=== PATIENT | male | born 1990 | race Caucasian/White ===

== ENCOUNTER 2016-10-06 19:00 | Emergency (ER) | payer BC ==
--- NOTE | 2016-10-06 23:42 | DIAGNOSTIC IMAGING REPORT ---
PROCEDURE: US ABDOMEN ULTRASOUND-LIMITED INDICATION: EPIGASTRIC ABDOMINAL PAIN TECHNIQUE: Dias scale and color Doppler sonographic images were obtained of the right upper quadrant. COMPARISON: None. FINDINGS: The liver is moderately diffusely hyperechoic. No mass or biliary dilatation. The gallbladder nearly completely decompressed and there is a question of 4 mm stone at the fundus. Normal wall thickness at 3 mm. No pericholecystic fluid or Patiño's sign. The visible portion of the inferior vena cava, abdominal aorta, and portal vein appear normal with appropriate direction of flow in the portal vein. The right kidney is normal measuring 10.7 cm No free fluid in the right upper quadrant. IMPRESSION: 1. Questionable nonobstructing cholelithiasis without sonographic evidence of cholecystitis. 2. Moderate hepatic steatosis.
--- NOTE | 2016-10-06 23:56 | ED CLINICAL REPORT ---
Clinical Report - Physicians/Mid Levels [facility] [address] [place] [place] [address] 10/06/2016 19:02 Patient: JERALD SANTANA Time Seen: 1999. Arrived- By private vehicle. Historian- patient. HISTORY OF PRESENT ILLNESS Chief Complaint: ABDOMINAL PAIN. At its maximum, severity described as severe. When seen in the E.D., severity described as moderate. Modifying factors- worsened by food. Not relieved by anything. It is described as pressure. No radiation. It is described as located in the left abdomen. This started today and is still present but is improving. It was abrupt in onset and has been constant but is not gone now. The patient has had nausea. No loss of appetite, vomiting or diarrhea. No additional abdominal pain. (states he just got done eating fast food when the pain started. has reported history of "gallstones"). No recent travel. Similar symptoms previously: None. Recent medical care: Not recently seen/assessed. REVIEW OF SYSTEMS All systems otherwise negative, except as recorded above. PAST HISTORY See nurses notes. SOCIAL HISTORY Never smoker. No alcohol use or drug use. No recent travel. Is a local resident. FAMILY HISTORY (grandmother "had to get her gallbladder out."). ADDITIONAL NOTES The nursing notes have been reviewed. PHYSICAL EXAM Vital Signs: 10/06/2016 19:38 BP: 124/61. HR: 83. RR: 18. O2 saturation: 100%. Temp: 98.3 F. Pain level now: 5/10. Blood pressure normal. Oxygen saturation normal. Appearance: Alert. Oriented X3. No acute distress. Eyes: Pupils equal, round and reactive to light. Eyes normal inspection. ENT: Ears normal. Nose normal. Pharynx normal. Neck: Normal inspection. Neck supple. CVS: Normal heart rate and rhythm. Heart sounds normal. Pulses normal. Respiratory: No respiratory distress. Breath sounds normal. Chest nontender. Abdomen: Soft and nontender. Mild tenderness in the epigastric area. No guarding, rebound tenderness or Patiño's, obturator or psoas sign present. Bowel sounds normal. No mass. Skin: Skin warm and dry. Normal skin color. No rash. Normal skin turgor. Extremities: Extremities exhibit normal ROM. No lower extremity edema. Neuro: Oriented X 3. No motor deficit. No sensory deficit. LABS, X-RAYS, AND EKG Abdominal Sonogram: (PROCEDURE: US ABDOMEN ULTRASOUND-LIMITED INDICATION: EPIGASTRIC ABDOMINAL PAIN TECHNIQUE: Dias scale and color Doppler sonographic images were obtained of the right upper quadrant. COMPARISON: None. FINDINGS: The liver is moderately diffusely hyperechoic. No mass or biliary dilatation. The gallbladder nearly completely decompressed and there is a question of 4 mm stone at the fundus. Normal wall thickness at 3 mm. No pericholecystic fluid or Patiño's sign. The visible portion of the inferior vena cava, abdominal aorta, and portal vein appear normal with appropriate direction of flow in the portal vein. The right kidney is normal measuring 10.7 cm No free fluid in the right upper quadrant. IMPRESSION: 1. Questionable nonobstructing cholelithiasis without sonographic evidence of cholecystitis. 2. Moderate hepatic steatosis.). The study was independently viewed by me and interpreted by the radiologist. The study was discussed with the radiologist (via pacs). Laboratory Tests: CBC w Diff: (RHONA: 10/06/2016 20:38) ( MsgRcvd 10/06/2016 20:55) Final results Test Result Flag Units (Reference) WHITE BLOOD COUNT 7.8 K/uL (4.5-11.5) RED BLOOD COUNT 5.24 M/uL (4.50-5.90) HEMOGLOBIN 15.9 gm/dL (13.5-17.5) HEMATOCRIT 46.9 % (41.0-53.0) MEAN CELL VOLUME 89 fL (80-100) MEAN CORPUSCULAR HGB 30 pg (26-34) MEAN CORPUSCULAR HGB CONC 34 g/dL (31-37) RED CELL DISTRIBUTION WIDTH 12.7 % (11.6-14.8) PLATELET COUNT 220 K/uL (150-400) NEUTROPHIL % 59.1 % (50-75) LYMPH % 31.4 % (25-40) MONO % 7.6 % (3-14) EOSINOPHIL % 1.5 % (0-4) BASOPHIL % 0.4 % (0-2) CMP: (RHONA: 10/06/2016 20:38) ( MsgRcvd 10/06/2016 21:13) Final results Test Result Flag Units (Reference) GLUCOSE 103 mg/dL (70-110) BUN 8 mg/dL (7-18) CREATININE 1.0 mg/dL (0.6-1.3) Estimated GFR >60 mL/min Estimated GFR- >60 mL/min Note: Persistent reduction over 3 months in eGFR<60 mL/min/1.73 m2 defines CKD. Patients with eGFR values>=60 mL/min/1.73 m2 may also have CKD if evidence ofpersistent proteinuria. Additional information may be foundat www.kidney.org. SODIUM 142 mmol/L (136-145) POTASSIUM 3.8 mmol/L (3.5-5.1) CHLORIDE 104 mmol/L (98-107) CARBON DIOXIDE 28 mmol/L (21-32) CALCIUM 9.1 mg/dL (8.5-10.1) TOTAL PROTEIN 7.9 g/dL (6.4-8.2) ALBUMIN 4.0 g/dL (3.3-5.0) BILIRUBIN, TOTAL 0.5 mg/dL (0.0-1.0) ALKALINE PHOSPHATASE 66 U/L (46-116) AST (SGOT) 39 H U/L (15-37) ALT (SGPT) 80 H U/L (12-78) LIPASE 105 U/L (73-393) . PROGRESS AND PROCEDURES Course of Care: he patient is a pleasant 26-year-old male presenting for evaluation of epigastric/left upper quadrant abdominal pain. Differential diagnosis at this time includes gastritis versus hepatitis versus biliary colic. Patient will be evaluated with laboratory studies including ultrasound of the abdomen. Patient is agreeable to the treatment plan. Patient currently declining offers of pain medication. Work up was remarkable for mild elevation in LFTs. Patient does have signs ofcholelithiasis without cholecystitis. Pain has been significantly improved here in the emergency department spontaneously. Because the patient's improve pain symptoms and lack ofultrasound evidence of acute cholecystitis, patient will be encouraged to follow up as an outpatient with general surgery. He states that he does have a general surgeon in which she has been seen for. Patient states that he not or murmurs that he has had a diagnosis of gallstones. Head discussion with patient in regards toother topics including currently being enrolled in a nursing program locally. 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 Patient continues to be nontoxic. Abdominal exam is benign. Patient is a good outpatient candidate. Do not feel patient is admitted to the hospital requires admission to the hospital. discussed with patient workup, diagnosis, home care, follow-up, and return precautions. All questions have been answered. The patient expressed understanding of these instructions and was agreeable to them. Disposition: Discharged. Condition: good. CLINICAL IMPRESSION Acute epigastric and left upper quadrant abdominal pain of unknown cause. Moderate nausea (acute). No vomiting. INSTRUCTIONS Warnings: GENERAL WARNINGS: Return or contact your physician immediately if your condition worsens or changes unexpectedly, if not improving as expected, or if other problems arise. SPECIFICALLY, return if you develop pain in the abdomen, fever, vomiting, the inability to keep fluids down, blood in vomitus, blood in diarrhea, fainting or lightheadedness. Your Current Medications: CONTINUE TAKING THE FOLLOWING MEDICATIONS: None*. Follow-up: Return to the emergency department as needed. Follow up with your doctor in three days. Reason for referral: recheck today's concerns. Summary of care provided to patient via paper. Screening today revealed the patient's blood pressure to be in the normal range. The patient should follow up with a primary care provider for blood pressure management. Understanding of the discharge instructions verbalized by patient. (Electronically signed by Bharat Daniels Dr. 10/13/2016 0:39)
--- NOTE | 2016-10-06 23:56 | ED ORDER SUMMARY ---
..... Patient: JERALD SANTANA OrderSheet [facility] VisitID: [id number] [place] [address] 26y, M Registration Date/Time: 10/06/2016 ORDER SHEET Weight: 24.9 kg (estimated) Allergies: No Known Drug Allergy GENERAL ORDERS: US Abdomen Limited (No) Urgent (20:10/06/2016 Jules Tamez) (Ack 20:26 ALawrence ER Tech1) (22:36 ALawrence ER Tech1) CBC w Diff Urgent (20:10/06/2016 Jules Tamez) (Ack 20:26 ALawrence ER Tech1) (22:30 DDavis R.N.) CMP Urgent (20:10/06/2016 Jules Tamez) (Ack 20:26 ALawrence ER Tech1) (22:30 DDavis R.N.) UA-Culture if indicated Urgent (20:10/06/2016 Jules Tamez) (Ack 20:26 ALawrence ER Tech1) (22:30 DDavis R.N.) Lipase Urgent (20:10/06/2016 Jules Tamez) (Ack 20:26 ALawrence ER Tech1) (22:30 DDavis R.N.) Pulse oximeter (20:10/06/2016 Jules Tamez) (Ack 20:26 ALawrence ER Tech1) (22:30 DDavis R.N.) MEDICATION ORDERS: IV FLUIDS: Zofran IV 4 mg (NOW) (20:10/06/2016 Jules Tamez) (20:46 SSambou R.N.) IV Saline Lock (20:10/06/2016 Jules Tamez) (20:46 SSambou R.N.) ORDER SHEET NOTES: [Electronically signed by Raheem Fuentes R.N. (00:24 10/07/2016)] [Electronically signed by Bharat Daniels Dr. (00:39 10/13/2016)] [Electronically locked/signed by Raheem Fuentes R.N. (00:24 10/07/2016)]
--- NOTE | 2016-10-06 23:56 | ED NURSING NOTES ---
Clinical Report - Nurses [facility] [address] [place] [address] 10/06/2016 19:02 Patient: JERALD SANTANA TRIAGE Triage time 19:38. Acuity: LEVEL 3. Chief Complaint: JAW PAIN. --19:42 Sheriff Gr R.N. 19:38 10/06/16. BP: 124/61. HR: 83. RR: 18. O2 saturation: 100%. Temp: 98.3 F. Pain level now: 11/26. --19:42 Sheriff Gr R.N. Weight: 24.9 kg estimated. Height/Length: 65 inches Estimated. BMI: 9.1. --00:18 Raheem Fuentes R.N. Medications None. --19:40 Sheriff Gr R.N. Allergies No Known Drug Allergy. --19:40 Sheriff Gr R.N. History Arrived by private vehicle. Historian: patient. Unaccompanied. Onset. (45 minutes ago). SURGERY HX: No history of previous surgery. SOCIAL HX: Smoker- current status unknown (Vape). Occasional alcohol use. No drug use. FALL RISK ASSESSMENT: Fall risk assessment completed. No fall risk identified. NUTRITIONAL RISK ASSESSMENT: The nutritional risk assessment revealed no deficiencies. FUNCTIONAL ASSESSMENT: Functional assessment: no impairments noted. LEARNING NEEDS ASSESSMENT: The learning needs assessment revealed no barriers. SKIN INTEGRITY ASSESSMENT: Skin integrity risk assessment completed. No skin integrity risk identified. --19:42 Sheriff Gr R.N. PROBLEMS: Anxiety Reaction. --19:40 Sheriff Gr R.N. Interventions ID band on patient. To room. --19:42 Sheriff Gr R.N. PHYSICAL ASSESSMENT Ambulatory to room. GENERAL / NEURO / PSYCH: Alert. Oriented X 4. HEENT: Mouth within normal limits upon inspection. Mucous membranes are pink. RESPIRATORY: Respirations not labored. CVS: Capillary refill less than 2 seconds. SKIN: Skin is warm and dry. --19:42 Sheriff Gr R.N. ( patient sitting upright in bed, calm and in no apparent distress. Patient conversant and pleasant.). GENERAL / NEURO / PSYCH: Alert. Oriented X 4. Appears in no acute distress. HEENT: Voice within normal limits. Mucous membranes are pink. RESPIRATORY: Respirations not labored. CVS: Capillary refill less than 2 seconds. SKIN: Skin is warm and dry. --22:41 Raheem Fuentes R.N. NURSING PROGRESS NOTES Head of bed elevated. Two patient identifiers checked. Call light placed in reach. Side rails up x 2. Bed placed in lowest position. Brakes of bed on. Patient ready for evaluation- chart flagged. --19:43 Sheriff Gr R.N. 20:46 10/06/2016 Site #1 started via IV in the left antecubital space with an 20g angiocath, with aseptic technique and good blood return; one attempt. Blood drawn: rainbow set. Labeled in the presence of the patient and sent to the lab. Saline lock flushed with 10 mL saline. --20:46 Sheriff Gr R.N. 20:46 10/06/2016 Zofran (Ondansetron HCl) IVP 4 mg given over 1 minute(s) via site #1. Allergies verified and confirmed 5 rights. IV patency established site checked: no pain, redness, or swelling flushed thoroughly pre- and post-medication administration. IVP given by RN. --20:46 Sheriff Gr R.N. 21:30 10/06/16. BP: 111/51. HR: 65. RR: 16. O2 saturation: 97%. Temp: 98.3 F. Pain level now: 08/29. --21:31 Sheriff Gr R.N. 22:40 10/06/16. BP: 113/81. HR: 81. RR: 16. O2 saturation: 99% on room air. Pain level now: 09/26. --22:40 Raheem Fuentes R.N. DISPOSITION / DISCHARGE Condition at departure: stable. The goals identified in the patient's plan of care were met. No learning barriers present. Discharge instructions provided and reviewed with the patient. Treatments reviewed. Reviewed referrals for followup. Patient verbalized understanding. Written instructions provided in Slovak. The patient was discharged home and unaccompanied at time of discharge. He left the Emergency Department ambulatory and via private vehicle. Patient driving. FALL RISK ASSESSMENT: Fall risk assessment completed. No fall risk identified. --00:23 Raheem Fuentes R.N. 00:10/07/16. BP: 128/79. HR: 70. RR: 17 (unlabored). O2 saturation: 100% on room air. --00:23 Raheem Fuentes R.N. 00:10/07/2016 Site #1 removed upon discharge. Manual pressure and bandaid applied. --00:23 Raheem Fuentes R.N. Locked/Released at 10/07/2016 0:24 by Raheem Fuentes R.N.
--- NOTE | 2016-10-06 23:56 | ED ORDER SUMMARY ---
..... Patient: JERALD SANTANA OrderSheet [facility] VisitID: [id number] [place] [address] 26y, M Registration Date/Time: 10/06/2016 ORDER SHEET Weight: 24.9 kg (estimated) Allergies: No Known Drug Allergy GENERAL ORDERS: US Abdomen Limited (No) Urgent (20:10/06/2016 Jules Tamez) (Ack 20:26 ALawrence ER Tech1) (22:36 ALawrence ER Tech1) CBC w Diff Urgent (20:10/06/2016 Jules Tamez) (Ack 20:26 ALawrence ER Tech1) (22:30 DDavis R.N.) CMP Urgent (20:10/06/2016 Jules Tamez) (Ack 20:26 ALawrence ER Tech1) (22:30 DDavis R.N.) UA-Culture if indicated Urgent (20:10/06/2016 Jules Tamez) (Ack 20:26 ALawrence ER Tech1) (22:30 DDavis R.N.) Lipase Urgent (20:10/06/2016 Jules Tamez) (Ack 20:26 ALawrence ER Tech1) (22:30 DDavis R.N.) Pulse oximeter (20:10/06/2016 Jules Tamez) (Ack 20:26 ALawrence ER Tech1) (22:30 DDavis R.N.) MEDICATION ORDERS: IV FLUIDS: Zofran IV 4 mg (NOW) (20:10/06/2016 Jules Tamez) (20:46 SSambou R.N.) IV Saline Lock (20:10/06/2016 Jules Tamez) (20:46 SSambou R.N.) ORDER SHEET NOTES: [Electronically signed by Raheem Fuentes R.N. (00:24 10/07/2016)] [Electronically signed by Bharat Daniels Dr. (00:39 10/13/2016)] [Electronically locked/signed by Raheem Fuentes R.N. (00:24 10/07/2016)]
--- NOTE | 2016-10-13 00:39 | ED MAR SUMMARY ---
..... Medication Administration Record [facility] [address] [place] [address] Patient: JERALD SANTANA Visit ID: [id number] 26y, M Weight: 24.9 kg Height/Length: 65 in BMI: 9.1 ALLERGIES: No Known Drug Allergy Given 20:46 10/06/2016 Sheriff Gr R.N. Medication Administered: ZOFRAN [IVP] (ONDANSETRON HCL), Dose: 4 mg IVP over 1 minute(s), Site: #1 left AC. Medication Ordered: Zofran IV 4 mg (NOW).
--- NOTE | 2016-10-13 00:39 | ED DISCHARGE INSTRUCTIONS ---
Patient: JERALD SANTANA General Instructions [facility] VisitID: [id number] [place] [address] 26y, M Registration Date/Time: 10/06/2016 Acute epigastric and left upper quadrant abdominal pain of unknown cause. Moderate nausea (acute). No vomiting. INSTRUCTIONS Warnings: GENERAL WARNINGS: Return or contact your physician immediately if your condition worsens or changes unexpectedly, if not improving as expected, or if other problems arise. SPECIFICALLY, return if you develop pain in the abdomen, fever, vomiting, the inability to keep fluids down, blood in vomitus, blood in diarrhea, fainting or lightheadedness. Your Current Medications: CONTINUE TAKING THE FOLLOWING MEDICATIONS: None*. Follow-up: Return to the emergency department as needed. Follow up with your doctor in three days. Reason for referral: recheck today's concerns. Summary of care provided to patient via paper. Screening today revealed the patient's blood pressure to be in the normal range. The patient should follow up with a primary care provider for blood pressure management. Understanding of the discharge instructions verbalized by patient. ADDITIONAL INFORMATION Abdominal Pain,Uncertain Cause [Male] Based on your visit today, the exact cause of your abdominalpain is not clear. Your exam and tests do not indicate a dangerous cause at this time. However, the signs of a serious problem may take more time to appear. Although your evaluation was reassuring today, sometimes early in the course of many conditions, exam and lab tests can appear normal. Therefore, it is important for you to watch for any new symptoms or worsening of your condition. Causes It may not be obvious what caused your symptoms. Pay attention to things that do seem to make your symptoms worse or better and discuss this with your doctor when you follow up. Diagnosis The evaluation of abdominal pain in the emergency department may onlyrequire an exam by the doctor or it may include blood, urine or imaging studies, depending on many factors. Sometimes exams and tests can identify a cause but in many cases, a clear cause is not found. Further testing at follow up visits may help to suggest a clear diagnosis. Home Care Rest as much as possible until your next exam. Try to avoid any medications (unless otherwise directed by your doctor), foods, activities, or other factors that you may have contributed to your symptoms. Try to eat foods that you know that you have tolerated well in the past. Certain diets may be recommended for some conditions that cause abdominal pain. However, since the cause of your symptoms may not be clear, discuss your diet more with your primary care provider or specialist for further recommendations. Eating several small meals per day as opposed to 2 or 3 larger meals may help. Monitor closely for anything that may make your symptoms worse or better. Pay close attention to symptoms below that may indicate worsening of your condition. Follow Up and Precautions See your doctoras instructed or sooneror if your symptoms are not improving.In some cases, you may need more testing. When to Seek Medical Attention Contact your doctor or see medical attention ifany of the following occur: Pain is becoming worse You are unable to take your medications due to excessive vomiting Swelling of the abdomen Fever of 100.4F (38C) or higher, or as directed by your health care provider Blood in vomit or bowel movements (dark red or black color) Jaundice (yellow color of eyes and skin) New onset of weakness, dizziness or fainting New onset of chest, arm, back, neck or jaw pain You have been given the following additional information: Abdominal Pain, Unknown Cause, (Male) (Electronically signed by Bharat Daniels Dr. 10/13/2016 0:39)
--- NOTE | 2016-10-13 00:39 | ED MAR SUMMARY ---
..... Medication Administration Record [facility] [address] [place] [address] Patient: JERALD SANTANA Visit ID: [id number] 26y, M Weight: 24.9 kg Height/Length: 65 in BMI: 9.1 ALLERGIES: No Known Drug Allergy Given 20:46 10/06/2016 Sheriff Gr R.N. Medication Administered: ZOFRAN [IVP] (ONDANSETRON HCL), Dose: 4 mg IVP over 1 minute(s), Site: #1 left AC. Medication Ordered: Zofran IV 4 mg (NOW).
--- NOTE | 2016-10-13 00:39 | ED MED RECONCILIATION SUMMARY ---
Patient: JERALD SANTANA Medication Reconciliation Report [facility] VisitID: [id number] [address] [place] [address] 26y, M Registration Date/Time: 10/06/2016 Weight: 24.9 kg Height/Length: 65 in. BMI: 9.1 ALLERGIES: No Known Drug Allergy The patient's Home Medications are listed below: NONE. The source(s) of the original Home Medication information: Not obtained. The following Medications were given to the patient in the Emergency Department: Zofran [IVP] IVP 4 mg, administered: 10/06/2016 8:46:00 PM The following Medications were prescribed to the patient: None.
--- NOTE | 2016-10-13 00:39 | ED MED RECONCILIATION SUMMARY ---
Patient: JERALD SANTANA Medication Reconciliation Report [facility] VisitID: [id number] [address] [place] [address] 26y, M Registration Date/Time: 10/06/2016 Weight: 24.9 kg Height/Length: 65 in. BMI: 9.1 ALLERGIES: No Known Drug Allergy The patient's Home Medications are listed below: NONE. The source(s) of the original Home Medication information: Not obtained. The following Medications were given to the patient in the Emergency Department: Zofran [IVP] IVP 4 mg, administered: 10/06/2016 8:46:00 PM The following Medications were prescribed to the patient: None.
== END 2016-10-07 00:20 | disposition home or self-care (01) ==
LOC: ED SRH 19:00
DX: R10.13 Epigastric pain (principal); R10.12 Left upper quadrant pain; R11.0 Nausea
CPT/HCPCS: 90100; 92235; 95059

== ENCOUNTER 2016-12-04 20:07 | Emergency (ER) | payer BC ==
--- NOTE | 2016-12-04 21:59 | DIAGNOSTIC IMAGING REPORT ---
PROCEDURE: XR CHEST 2 VIEW INDICATION: CHEST PAIN TECHNIQUE: PA and lateral view. COMPARISON: None. FINDINGS: Lungs are clear. Cardiovascular structures are normal. Bony thorax is unremarkable. IMPRESSION: 1. Negative chest.
--- NOTE | 2016-12-04 22:19 | ED CLINICAL REPORT ---
Clinical Report - Physicians/Mid Levels [facility] [address] [place] [address] 12/04/2016 20:08 Patient: JERALD SANTANA Time Seen: 2031; initial patient contact, initial documentation, patient care assumed. Arrived- By private vehicle. Historian- patient. HISTORY OF PRESENT ILLNESS Chief Complaint: ABDOMINAL PAIN. At its maximum, severity described as severe. When seen in the E.D., severity described as mild. Modifying factors- (felt better and bowel movement). Not worsened by anything. It is described as "pain" and cramping. No radiation. It is described as located in the right lower quadrant and left lower quadrant and in the lower abdomen. This started just prior to arrival and is still present. It was abrupt in onset and has been constant. No nausea, loss of appetite or vomiting. He has had diarrhea (few times today). No additional abdominal pain. No recent travel. Similar symptoms previously: Chronically. ( with skin sensations, according to avinash). Recent medical care: The patient was seen recently at another facility in the emergency department. ( according to avinash pt was seen at [facility] on 12/01 for tingling and skin sensations, 11/28 for generalized muscle pain, 11/18 for muscle pain and tingling skin). REVIEW OF SYSTEMS No constipation, black stools, hematemesis, difficulty with urination or pain with urination. No urinary frequency, bloody stools, fever or difficulty breathing. He has had chest pain. says he was at gym on treadmill doing his walk, got sob and felt pop in center of his chest and then weird skin sensations with coldness going up his neck and into his jaw, suffers from anxiety so thought it was that and kept walking, only lasted a few seconds, then about 20-25 min into walk started having severe lower abd cramps like he had to poop, pain still there but not as bad now after bowel movement. All systems otherwise negative, except as recorded above. PAST HISTORY See nurses notes. PROBLEMS: Nausea. Abdominal Pain. Anxiety Reaction. --20:16 Tyler Terry R.N. ADDITIONAL SURGERIES: no known surgeries. SOCIAL HISTORY Never smoker. Occasional alcohol use. No drug use. No recent travel. Is a local resident. FAMILY HISTORY Negative. ADDITIONAL NOTES The nursing notes have been reviewed with agreement regarding the chief complaint, HPI, ROS, PMH and patient medications and allergies. PHYSICAL EXAM Vital Signs: 12/04/2016 20:13 BP: 135/75. HR: 83. RR: 16. O2 saturation: 97%. Temp: 98.5 F. Have been reviewed as normal and appear to be correct. Appearance: Alert. Oriented X3. No acute distress. Eyes: Pupils equal, round and reactive to light. Eyes normal inspection. Neck: Normal inspection. Neck supple. CVS: Normal heart rate and rhythm. Heart sounds normal. Pulses normal. Respiratory: No respiratory distress. Breath sounds normal. Chest nontender. Abdomen: Soft and nontender. Bowel sounds normal. No organomegaly. No mass. Mildly obese. Back: Normal inspection. Skin: Skin warm and dry. Normal skin color. No rash. Normal skin turgor. Extremities: Extremities exhibit normal ROM. No lower extremity edema. Neuro: Oriented X 3. No motor deficit. No sensory deficit. LABS, X-RAYS, AND EKG EKG: EKG time: (2104). No acute process. No acute ischemia. Normal EKG. Rate: 71. Normal EKG. The study has been interpreted contemporaneously by me (and dr rangel). The EKG appears to be a good tracing. Interpretation time: 2104. Chest X-ray: Normal Chest X-Ray. (IMPRESSION: 1. Negative chest. Electronically Final signed by:Rajendra Yu MD 12/04/2016 9:58:51 PM). The X-rays were independently viewed by me. Interpretation time: 21:58. Laboratory Tests: UA-Culture if indicated: (RHONA: 12/04/2016 20:13) ( MsgRcvd 12/04/2016 21:26) Final results Test Result Flag Units (Reference) URINE COLOR YELLOW URINE APPEARANCE CLEAR URINE GLUCOSE NEGATIVE (NEGATIVE) URINE BILIRUBIN NEGATIVE (NEGATIVE) URINE KETONE NEGATIVE (NEGATIVE) URINE SPECIFIC GRAVITY 1.020 (1.010-1.030) URINE PH 6.0 (5.0-8.0) URINE PROTEIN NEGATIVE (NEGATIVE) URINE UROBILINOGEN 0.2 EU/dL (0.2-1.0) URINE NITRITE NEGATIVE (NEGATIVE) URINE BLOOD NEGATIVE (NEGATIVE) URINE LEUK ESTERASE NEGATIVE (NEGATIVE) URINE RBC NONE SEEN rbc/hpf (0-1) URINE WBC NONE SEEN wbc/hpf (0-1) URINE EPITHELIAL CELLS 0-1 EPI/hpf (0-5) URINE BACTERIA NONE SEEN (NONE SEEN) URINE COMMENT CULT NOT INDICATED URINE CULTURES ARE SET-UP BASED ON THE FOLLOWING CRITERIA:POSITIVE NITRITEPOSITIVE LEUKOCYTE ESTERASEGREATER THAN 10 WHITE BLOOD CELLSMODERATE (2+) OR GREATER BACTERIA CBC w Diff: (RHONA: 12/04/2016 20:55) ( [facility]) Final results Test Result Flag Units (Reference) WHITE BLOOD COUNT 7.0 K/uL (4.5-11.5) RED BLOOD COUNT 5.21 M/uL (4.50-5.90) HEMOGLOBIN 15.8 gm/dL (13.5-17.5) HEMATOCRIT 46.5 % (41.0-53.0) MEAN CELL VOLUME 89 fL (80-100) MEAN CORPUSCULAR HGB 30 pg (26-34) MEAN CORPUSCULAR HGB CONC 34 g/dL (31-37) RED CELL DISTRIBUTION WIDTH 12.6 % (11.6-14.8) PLATELET COUNT 212 K/uL (150-400) NEUTROPHIL % 51.8 % (50-75) LYMPH % 38.5 % (25-40) MONO % 6.9 % (3-14) EOSINOPHIL % 2.1 % (0-4) BASOPHIL % 0.7 % (0-2) Urine Drug Screen: (RHONA: 12/04/2016 20:13) ( VagRcvd 12/04/2016 21:29) Final results Test Result Flag Units (Reference) AMPHETAMINE/METHAMPHETAMINE NEGATIVE (NEGATIVE) BARBITURATE NEGATIVE (NEGATIVE) BENZODIAZEPINE NEGATIVE (NEGATIVE) CANNABINOID NEGATIVE (NEGATIVE) COCAINE NEGATIVE (NEGATIVE) ECSTASY NEGATIVE (NEGATIVE) METHADONE NEGATIVE (NEGATIVE) OPIATE NEGATIVE (NEGATIVE) The urine drug screen is a qualitative screening test fordrug overdose and abuse. All screen results should beconsidered as presumptive.Drugs screened for are as follows:BenzodiazepinesCocaineAmphetamines/MetamphetaminesTHC (Tetrahydrocannabinol)OpiatesBarbituratesEcstasyMethadonePositive results are unconfirmed. For confirmation, notifythe lab for the specimen to be sent to the reference lab.All confirmations must be performed by a differentmethodology.The ingestion of natural herbal and plant productscontaining Ephedra/Ephedra metabolites can produce in urineone or more substances capable of cross reacting withamphetamine/methamphetamine immunoassays. These testsprovide a preliminary result only. A more specificalternative chemical method must be used to obtain aconfirmed analytical result. CMP: (RHONA: 12/04/2016 20:55) ( MsgRcvd 12/04/2016 21:31) Final results Test Result Flag Units (Reference) GLUCOSE 123 H mg/dL (70-110) BUN 11 mg/dL (7-18) CREATININE 1.0 mg/dL (0.6-1.3) Estimated GFR >60 mL/min Estimated GFR- >60 mL/min Note: Persistent reduction over 3 months in eGFR<60 mL/min/1.73 m2 defines CKD. Patients with eGFR values>=60 mL/min/1.73 m2 may also have CKD if evidence ofpersistent proteinuria. Additional information may be foundat www.kidney.org. SODIUM 144 mmol/L (136-145) POTASSIUM 3.7 mmol/L (3.5-5.1) CHLORIDE 107 mmol/L (98-107) CARBON DIOXIDE 28 mmol/L (21-32) CALCIUM 9.1 mg/dL (8.5-10.1) TOTAL PROTEIN 7.9 g/dL (6.4-8.2) ALBUMIN 4.2 g/dL (3.3-5.0) BILIRUBIN, TOTAL 0.6 mg/dL (0.0-1.0) ALKALINE PHOSPHATASE 70 U/L (46-116) AST (SGOT) 36 U/L (15-37) ALT (SGPT) 92 H U/L (12-78) LIPASE 127 U/L (73-393) AMYLASE 73 U/L (25-115) . PROGRESS AND PROCEDURES Course of Care: 20:43 12/04/16. pt has avinash for #35 er visits, see report for full details, this is pt's #5 visit to er this month 2207. had discussion with pt re frequent er visits, for same issues and encouraged pt get pcp. 12/04/2016 21:42 BP: 118/63. HR: 89. RR: 14. O2 saturation: 99%. Pain level now: 07/29. Vital Signs: have been reviewed as normal and appear to be correct. Patient counseled in person regarding the patient's stable condition, test results and diagnosis. 2207. Differential Diagnosis: I considered gastroenteritis, diverticulitis, colon cancer, ulcerative colitis, Crohn's disease and viral syndrome as a possible cause of abdominal pain in this patient. This is a partial list of diagnoses considered. Other possible considerations: anxiety, substance abuse, chest wall strain/pain. Above considerations are based on history, physical exam, reassessment, laboratory data, X-Ray data and EKG. Differential diagnosis was discussed with patient. Disposition: Discharged home in good and improved condition (22:19). Condition: good and stable. CLINICAL IMPRESSION Acute generalized abdominal pain of unknown cause. Normal exam upon presentation, while in the ED and at discharge. INSTRUCTIONS Warnings: GENERAL WARNINGS: Return or contact your physician immediately if your condition worsens or changes unexpectedly, if not improving as expected, or if other problems arise. SPECIFICALLY, return if you develop pain in the abdomen or pelvis, fever, the inability to keep fluids down, blood in vomitus, blood in diarrhea, fainting or lightheadedness. Follow-up: Follow up with your doctor in about two days even if well. Call for an appointment. Summary of care provided to patient. Understanding of the discharge instructions verbalized by patient. Follow-up with: Saroj Amador MD, [facility], , [facility], [address] [place] [address] Follow up in about two days as needed. Call for an appointment. (Electronically signed by Yue Ellis A.R.N.P. 12/04/2016 23:00)
--- NOTE | 2016-12-04 22:19 | ED NURSING NOTES ---
Clinical Report - Nurses [facility] [address] [place] [address] 12/04/2016 20:08 Patient: JERALD SANTANA TRIAGE Triage time 20:Dec 04 2016. Acuity: LEVEL 4. Chief Complaint: (Pt was working out when he felt a "pop and a warm sensation" in his middle, anterior chest. He subsequently felt severe cramping in his lower abdomen.). Alert. No acute distress. SEPSIS SCREEN: Sepsis Screen. Negative (no infection suspected/documented). --20:18 Tyler Terry R.N. 20:13 12/04/16. BP: 135/75. HR: 83. RR: 16. O2 saturation: 97% on room air. Temp: 98.5 F. --20:18 Tyler Terry R.N. Weight: 92.5 kg stated. Height/Length: 69 inches Per Patient. BMI: 30.1. --20:12 Tyler Terry R.N. Medications 25 mg hydroxyzine PRN. --20:16 Tyler Terry R.N. Allergies No Known Drug Allergy. --20:16 Tyler Terry R.N. History Arrived by private vehicle. Historian: patient. This started today. PAST MEDICAL HX: Immunizations: up-to-date. SOCIAL HX: Never smoker. Occasional alcohol use. No drug use. No infectious disease exposure. ABUSE ASSESSMENT: Abuse assessment: The patient was asked "Do you feel safe in your home?". No report of abuse. SELF HARM ASSESSMENT: A self harm assessment was performed. The patient answered "no" to the question "Have you recently felt down, depressed, or hopeless?", "Do you have thoughts of harming or killing yourself?" and "Have you recently had thoughts about harming or killing others?". FALL RISK ASSESSMENT: Fall risk assessment completed. No fall risk identified. NUTRITIONAL RISK ASSESSMENT: The nutritional risk assessment revealed no deficiencies. FUNCTIONAL ASSESSMENT: Functional assessment: no impairments noted. LEARNING NEEDS ASSESSMENT: The learning needs assessment revealed no barriers. SKIN INTEGRITY ASSESSMENT: Skin integrity risk assessment completed. No skin integrity risk identified. --20:18 Tyler Terry R.N. PROBLEMS: Nausea. Abdominal Pain. Anxiety Reaction. --20:16 Tyler Terry R.N. ADDITIONAL SURGERIES: no known surgeries. Assessment The patient states feels better. --20:18 Tyler Terry R.N. Interventions ID band on patient. --20:18 Tyler Terry R.N. PHYSICAL ASSESSMENT Ambulatory to room. GENERAL / NEURO / PSYCH: Alert. Oriented X 4. Appears in no acute distress. HEENT: Pupils equal, round and reactive to light. RESPIRATORY: Respirations not labored. CVS: No abnormal heart sounds. Pulses within normal limits. GI / : Abdomen soft and nontender. EXTREMITIES: No lower extremity edema. SKIN: Skin intact. Skin is warm and dry. Normal skin turgor. --20:19 Tyler Terry R.N. GI / : ( cramping to lower quadrants). --20:24 Tyler Terry R.N. NURSING PROGRESS NOTES The plan of care for this patient has been created. Monitoring of patient in place. Patient gowned. Head of bed elevated. Reassurance given. Two patient identifiers checked. Call light placed in reach. Bed placed in lowest position. Patient ready for evaluation- chart flagged. --20:20 Tyler Terry R.N. ( When asked what is the most alarming symptom Pt is experiencing, he states it is the lower abdominal cramping he is experiencing, he feels it is very debilitating.). --20:23 Tyler Terry R.N. Patient ID band checked for patient name and birthdate: patient confirmed. Instructions provided to collect clean catch urine and patient verbalized understanding. Clean catch urine collected with return of yellow-colored urine; sample sent to lab. Specimen labeled in the presence of the patient. --20:23 Tyler Terry R.N. 20:56 12/04/2016 Site #1 started via IV in the right antecubital space with an 20g angiocath, with aseptic technique and good blood return; one attempt. Blood drawn: rainbow set. Labeled in the presence of the patient and sent to the lab. Saline lock flushed with 10 mL saline. --20:56 Tyler Terry R.N. 20:56 12/04/2016 Started bag #1 1000 mL IV Fluids IV NS (Saline); bolus of 1000 mL wide open via site #1. Allergies verified and confirmed 5 rights. IV patency established site checked: no pain, redness, or swelling flushed thoroughly pre- and post-medication administration. Completed per protocol. --20:56 Tyler Terry R.N. 20:57 12/04/2016 Toradol IVP 30 mg given over 2 minute(s) via site #1. Allergies verified and confirmed 5 rights. IV patency established. IV site checked: no pain, redness, or swelling. IV flushed thoroughly pre- and post-medication administration. IVP given by RN. --20:57 Tyler Terry R.N. Patient transported to radiology by stretcher with tech. --20:58 Tyler Terry R.N. EKG time: (2104). EKG was performed by a tech and shown to the EPITAXIAL REACTOR TECHNICIAN. --21:04 Lilli Florian Patient walked back to ED from radiology with tech. (21:10 Dec 04 2016). --21:10 Tyler Terry R.N. 21:42 12/04/16. BP: 118/63. HR: 89. RR: 14. O2 saturation: 99% on room air. Pain level now: 07/29. --21:47 Tyler Terry R.N. 21:47 12/04/2016 IV Fluids IV NS Discontinued: bag #1 infused. Total amount infused: 1000 mL. IV patency established. IV site checked: no pain, redness, or swelling. IV flushed thoroughly. --21:47 Tyler Terry R.N. 21:47 12/04/2016 Toradol IVP Response: no adverse reaction symptoms have improved. --21:47 Tyler Terry R.N. 22:30 12/04/16. BP: 112/68. HR: 74. O2 saturation: 99%. --22:31 Tyler Terry R.N. DISPOSITION / DISCHARGE Departure time: 23:15. The goals identified in the patient's plan of care were met. No learning barriers present. Discharge instructions provided and reviewed with the patient. Patient verbalized understanding. Written instructions provided in Tajik. The patient was discharged by the physician school health assistant. He was discharged home. He left the Emergency Department ambulatory and via private vehicle. Patient driving. FALL RISK ASSESSMENT: Fall risk assessment completed. No fall risk identified. --23:15 Dipika Perez R.N. 23:13 12/04/16. BP: 116/65. HR: 69. RR: 16. O2 saturation: 98%. Temp: 98.5 F. Pain level now: 010. --23:15 Dipika Perez R.N. 23:10 12/04/2016 Site #1 removed upon discharge. Bandaid applied. --23:15 Dipika Perez R.N. Locked/Released at 12/05/2016 0:17 by Tyler Terry R.N.
--- NOTE | 2016-12-04 22:19 | ED ORDER SUMMARY ---
..... Patient: JERALD SANTANA OrderSheet [facility] VisitID: [id number] [place] [address] 26y, M Registration Date/Time: 12/04/2016 ORDER SHEET Weight: 92.5 kg (stated) Allergies: No Known Drug Allergy GENERAL ORDERS: Chest 2V Urgent (20:42 12/04/2016 HBivens A.R.N.P.) (Ack 20:45 CHagerty ER Trading Manager) (21:08 MCampbell) CBC w Diff Urgent (20:42 12/04/2016 HBivens A.R.N.P.) (Ack 20:45 CHagerty ER Trading Manager) (20:56 MCook R.N.) CMP Urgent (20:42 12/04/2016 HBivens A.R.N.P.) (Ack 20:45 CHagerty ER Trading Manager) (20:56 MCook R.N.) UA-Culture if indicated Urgent (20:42 12/04/2016 HBivens A.R.N.P.) (20:43 MCook R.N.) (Ack 20:45 CHagerty ER Trading Manager) Urine Drug Screen Urgent (20:42 12/04/2016 HBivens A.R.N.P.) (20:43 MCook R.N.) (Ack 20:45 CHagerty ER Trading Manager) Amylase Urgent (20:42 12/04/2016 HBivens A.R.N.P.) (Ack 20:45 CHagerty ER Trading Manager) (20:56 MCook R.N.) Lipase Urgent (20:42 12/04/2016 HBivens A.R.N.P.) (Ack 20:45 CHagerty ER Trading Manager) (20:56 MCook R.N.) EKG - ER Stat (20:42 12/04/2016 HBivens A.R.N.P.) (Ack 20:45 CHagerty ER Trading Manager) (21:03 LMuller) MEDICATION ORDERS: IV FLUIDS: IV NS : initial bolus 1000 mL (1000 mL/hr), then none - (NOW) (20:42 12/04/2016 HBivens A.R.N.P.) (20:56 MCook R.N.) Toradol IV 30 mg (NOW) (20:42 12/04/2016 HBivens A.R.N.P.) (20:57 MCook R.N.) IV Saline Lock (20:42 12/04/2016 HBivens A.R.N.P.) (20:56 MCook R.N.) ORDER SHEET NOTES: [Electronically signed by Yue EllisRRosalioN.PRosalio (23:00 12/04/2016)] [Electronically signed by Tyler Terry R.N. (00:17 12/05/2016)] [Electronically locked/signed by Tyler Terry R.N. (00:17 12/05/2016)]
--- NOTE | 2016-12-04 22:19 | ED ORDER SUMMARY ---
..... Patient: JERALD SANTANA OrderSheet VisitID: [id number] [place] [address] 26y, M Registration Date/Time: 12/04/2016 ORDER SHEET Weight: 92.5 kg (stated) Allergies: No Known Drug Allergy GENERAL ORDERS: Chest 2V Urgent (20:42 12/04/2016 HBivens A.R.N.P.) (Ack 20:45 CHagerty ER Advertising Teacher) (21:08 MCampbell) CBC w Diff Urgent (20:42 12/04/2016 HBivens A.R.N.P.) (Ack 20:45 CHagerty ER Advertising Teacher) (20:56 MCook R.N.) CMP Urgent (20:42 12/04/2016 HBivens A.R.N.P.) (Ack 20:45 CHagerty ER Advertising Teacher) (20:56 MCook R.N.) UA-Culture if indicated Urgent (20:42 12/04/2016 HBivens A.R.N.P.) (20:43 MCook R.N.) (Ack 20:45 CHagerty ER Advertising Teacher) Urine Drug Screen Urgent (20:42 12/04/2016 HBivens A.R.N.P.) (20:43 MCook R.N.) (Ack 20:45 CHagerty ER Advertising Teacher) Amylase Urgent (20:42 12/04/2016 HBivens A.R.N.P.) (Ack 20:45 CHagerty ER Advertising Teacher) (20:56 MCook R.N.) Lipase Urgent (20:42 12/04/2016 HBivens A.R.N.P.) (Ack 20:45 CHagerty ER Advertising Teacher) (20:56 MCook R.N.) EKG - ER Stat (20:42 12/04/2016 HBivens A.R.N.P.) (Ack 20:45 CHagerty ER Advertising Teacher) (21:03 LMuller) MEDICATION ORDERS: IV FLUIDS: IV NS : initial bolus 1000 mL (1000 mL/hr), then none - (NOW) (20:42 12/04/2016 HBivens A.R.N.P.) (20:56 MCook R.N.) Toradol IV 30 mg (NOW) (20:42 12/04/2016 HBivens A.R.N.P.) (20:57 MCook R.N.) IV Saline Lock (20:42 12/04/2016 HBivens A.R.N.P.) (20:56 MCook R.N.) ORDER SHEET NOTES: [Electronically signed by Yue EllisRRosalioN.PRosalio (23:00 12/04/2016)] [Electronically signed by Tyler Terry R.N. (00:17 12/05/2016)] [Electronically locked/signed by Tyler Terry R.N. (00:17 12/05/2016)]
--- NOTE | 2016-12-05 00:17 | ED MAR SUMMARY ---
..... Medication Administration Record [facility] [address] [place] [address] Patient: JERALD SANTANA Visit ID: [id number] 26y, M Weight: 92.5 kg Height/Length: 69 in BMI: 30.1 ALLERGIES: No Known Drug Allergy Start 20:56 12/04/2016 Tyler Terry R.N., Stop 21:47 12/04/2016 Tyler Terry R.N. Medication Administered: IV NS (SALINE), Dose: IV Fluids, Bolus: 1000 mL wide open, Dispensed: 1000 mL bag, Site: #1 right AC. Medication Ordered: IV NS : initial bolus 1000 mL (1000 mL/hr), then none - (NOW). Given 20:57 12/04/2016 Tyler Terry R.N. Medication Administered: TORADOL [IVP], Dose: 30 mg IVP over 2 minute(s), Site: #1 right AC. Medication Ordered: Toradol IV 30 mg (NOW).
--- NOTE | 2016-12-05 00:17 | ED MED RECONCILIATION SUMMARY ---
Patient: JERALD SANTANA Medication Reconciliation Report [facility] VisitID: [id number] [address] [place] [address] 26y, M Registration Date/Time: 12/04/2016 Weight: 92.5 kg Height/Length: 69 in. BMI: 30.1 ALLERGIES: No Known Drug Allergy The patient's Home Medications are listed below: THE FOLLOWING MEDICATIONS NEED TO BE RECONCILED: 25 mg hydroxyzine PRN The source(s) of the original Home Medication information: Not obtained. The following Medications were given to the patient in the Emergency Department: IV NS IV Fluids bolus 1000 mL wide open, administered: 12/04/2016 8:56:00 PM Toradol [IVP] IVP 30 mg, administered: 12/04/2016 8:57:00 PM The following Medications were prescribed to the patient: None.
--- NOTE | 2016-12-05 00:17 | ED MED RECONCILIATION SUMMARY ---
Patient: JERALD SANTANA Medication Reconciliation Report [facility] VisitID: [id number] [address] [place] [address] 26y, M Registration Date/Time: 12/04/2016 Weight: 92.5 kg Height/Length: 69 in. BMI: 30.1 ALLERGIES: No Known Drug Allergy The patient's Home Medications are listed below: THE FOLLOWING MEDICATIONS NEED TO BE RECONCILED: 25 mg hydroxyzine PRN The source(s) of the original Home Medication information: Not obtained. The following Medications were given to the patient in the Emergency Department: IV NS IV Fluids bolus 1000 mL wide open, administered: 12/04/2016 8:56:00 PM Toradol [IVP] IVP 30 mg, administered: 12/04/2016 8:57:00 PM The following Medications were prescribed to the patient: None.
--- NOTE | 2016-12-05 00:17 | ED MAR SUMMARY ---
..... Medication Administration Record [facility] [address] [place] [address] Patient: JERALD SANTANA Visit ID: [id number] 26y, M Weight: 92.5 kg Height/Length: 69 in BMI: 30.1 ALLERGIES: No Known Drug Allergy Start 20:56 12/04/2016 Tyler Terry R.N., Stop 21:47 12/04/2016 Tyler Terry R.N. Medication Administered: IV NS (SALINE), Dose: IV Fluids, Bolus: 1000 mL wide open, Dispensed: 1000 mL bag, Site: #1 right AC. Medication Ordered: IV NS : initial bolus 1000 mL (1000 mL/hr), then none - (NOW). Given 20:57 12/04/2016 Tyler Terry R.N. Medication Administered: TORADOL [IVP], Dose: 30 mg IVP over 2 minute(s), Site: #1 right AC. Medication Ordered: Toradol IV 30 mg (NOW).
--- NOTE | 2016-12-05 00:17 | ED DISCHARGE INSTRUCTIONS ---
Patient: JERALD SANTANA General Instructions [facility] VisitID: [id number] [address] [place] [address] 26y, M Registration Date/Time: 12/04/2016 Acute generalized abdominal pain of unknown cause. Normal exam upon presentation, while in the ED and at discharge. INSTRUCTIONS Warnings: GENERAL WARNINGS: Return or contact your physician immediately if your condition worsens or changes unexpectedly, if not improving as expected, or if other problems arise. SPECIFICALLY, return if you develop pain in the abdomen or pelvis, fever, the inability to keep fluids down, blood in vomitus, blood in diarrhea, fainting or lightheadedness. Follow-up: Follow up with your doctor in about two days even if well. Call for an appointment. Summary of care provided to patient. Understanding of the discharge instructions verbalized by patient. Follow-up with: Saroj Amador MD, [facility], , [facility], [address] [place] [address] Follow up in about two days as needed. Call for an appointment. ADDITIONAL INFORMATION Abdominal Pain,Uncertain Cause [Male] Based on your visit today, the exact cause of your abdominalpain is not clear. Your exam and tests do not indicate a dangerous cause at this time. However, the signs of a serious problem may take more time to appear. Although your evaluation was reassuring today, sometimes early in the course of many conditions, exam and lab tests can appear normal. Therefore, it is important for you to watch for any new symptoms or worsening of your condition. Causes It may not be obvious what caused your symptoms. Pay attention to things that do seem to make your symptoms worse or better and discuss this with your doctor when you follow up. Diagnosis The evaluation of abdominal pain in the emergency department may onlyrequire an exam by the doctor or it may include blood, urine or imaging studies, depending on many factors. Sometimes exams and tests can identify a cause but in many cases, a clear cause is not found. Further testing at follow up visits may help to suggest a clear diagnosis. Home Care Rest as much as possible until your next exam. Try to avoid any medications (unless otherwise directed by your doctor), foods, activities, or other factors that you may have contributed to your symptoms. Try to eat foods that you know that you have tolerated well in the past. Certain diets may be recommended for some conditions that cause abdominal pain. However, since the cause of your symptoms may not be clear, discuss your diet more with your primary care provider or specialist for further recommendations. Eating several small meals per day as opposed to 2 or 3 larger meals may help. Monitor closely for anything that may make your symptoms worse or better. Pay close attention to symptoms below that may indicate worsening of your condition. Follow Up and Precautions See your doctoras instructed or sooneror if your symptoms are not improving.In some cases, you may need more testing. When to Seek Medical Attention Contact your doctor or see medical attention ifany of the following occur: Pain is becoming worse You are unable to take your medications due to excessive vomiting Swelling of the abdomen Fever of 100.4F (38C) or higher, or as directed by your health care provider Blood in vomit or bowel movements (dark red or black color) Jaundice (yellow color of eyes and skin) New onset of weakness, dizziness or fainting New onset of chest, arm, back, neck or jaw pain Symptoms With Uncertain Cause [Adult] Based on the exam and any tests that were performed today, the exact cause of your symptoms is not certain. While your condition does not seem serious, the signs of a serious problem may take more time to appear. Therefore, it is important for you to watch for any new symptoms or worsening of your condition.Follow up with your doctor or this facility, as directed.A repeat physical exam or additional testing at a later time may uncover a cause for your symptoms that is not evident today. Home Care: Resume your usual activities and diet when this feels comfortable to do so. Follow Up with your doctor, or as advised by our staff.Contact your doctor sooner if your symptoms do not begin to improve in the next few days. [NOTE: If you had an x-ray, CT scan, ultrasound, or ECG (electrocardiogram), it will be reviewed by a specialist. You will be notified of any new findings that may affect your care.] Get Prompt Medical Attention if any of the following occur: Current symptoms get worse New symptoms appear Normal Exam [6Yr - Adult] Based on your or your child's exam today, there are no signs of illness or injury. Be assured that the symptoms that worried you are normal. They do not suggest any illness requiring testing or treatment at this time. Home Care: You (or your child) can return to normal activities and diet. If you or your child have new or unusual symptoms not already discussed today, contact the doctor. Follow Up with the doctor for the next routine appointment. For more information: For childrens health information: www.kidshealth.org For adult health information: [email or web address] You have been given the following additional information: Abdominal Pain, Unknown Cause, (Male) Symptoms With Uncertain Cause Normal Exam, (Child) (Adult) (Electronically signed by Yue Ellis A.R.N.P. 12/04/2016 23:00)
--- NOTE | 2016-12-05 00:17 | ED DISCHARGE INSTRUCTIONS ---
Patient: JERALD SANTANA General Instructions [facility] VisitID: [id number] [address] [place] [address] 26y, M Registration Date/Time: 12/04/2016 Acute generalized abdominal pain of unknown cause. Normal exam upon presentation, while in the ED and at discharge. INSTRUCTIONS Warnings: GENERAL WARNINGS: Return or contact your physician immediately if your condition worsens or changes unexpectedly, if not improving as expected, or if other problems arise. SPECIFICALLY, return if you develop pain in the abdomen or pelvis, fever, the inability to keep fluids down, blood in vomitus, blood in diarrhea, fainting or lightheadedness. Follow-up: Follow up with your doctor in about two days even if well. Call for an appointment. Summary of care provided to patient. Understanding of the discharge instructions verbalized by patient. Follow-up with: Saroj Amador MD, [facility], , [facility], [address] [place] [address] Follow up in about two days as needed. Call for an appointment. ADDITIONAL INFORMATION Abdominal Pain,Uncertain Cause [Male] Based on your visit today, the exact cause of your abdominalpain is not clear. Your exam and tests do not indicate a dangerous cause at this time. However, the signs of a serious problem may take more time to appear. Although your evaluation was reassuring today, sometimes early in the course of many conditions, exam and lab tests can appear normal. Therefore, it is important for you to watch for any new symptoms or worsening of your condition. Causes It may not be obvious what caused your symptoms. Pay attention to things that do seem to make your symptoms worse or better and discuss this with your doctor when you follow up. Diagnosis The evaluation of abdominal pain in the emergency department may onlyrequire an exam by the doctor or it may include blood, urine or imaging studies, depending on many factors. Sometimes exams and tests can identify a cause but in many cases, a clear cause is not found. Further testing at follow up visits may help to suggest a clear diagnosis. Home Care Rest as much as possible until your next exam. Try to avoid any medications (unless otherwise directed by your doctor), foods, activities, or other factors that you may have contributed to your symptoms. Try to eat foods that you know that you have tolerated well in the past. Certain diets may be recommended for some conditions that cause abdominal pain. However, since the cause of your symptoms may not be clear, discuss your diet more with your primary care provider or specialist for further recommendations. Eating several small meals per day as opposed to 2 or 3 larger meals may help. Monitor closely for anything that may make your symptoms worse or better. Pay close attention to symptoms below that may indicate worsening of your condition. Follow Up and Precautions See your doctoras instructed or sooneror if your symptoms are not improving.In some cases, you may need more testing. When to Seek Medical Attention Contact your doctor or see medical attention ifany of the following occur: Pain is becoming worse You are unable to take your medications due to excessive vomiting Swelling of the abdomen Fever of 100.4F (38C) or higher, or as directed by your health care provider Blood in vomit or bowel movements (dark red or black color) Jaundice (yellow color of eyes and skin) New onset of weakness, dizziness or fainting New onset of chest, arm, back, neck or jaw pain Symptoms With Uncertain Cause [Adult] Based on the exam and any tests that were performed today, the exact cause of your symptoms is not certain. While your condition does not seem serious, the signs of a serious problem may take more time to appear. Therefore, it is important for you to watch for any new symptoms or worsening of your condition.Follow up with your doctor or this facility, as directed.A repeat physical exam or additional testing at a later time may uncover a cause for your symptoms that is not evident today. Home Care: Resume your usual activities and diet when this feels comfortable to do so. Follow Up with your doctor, or as advised by our staff.Contact your doctor sooner if your symptoms do not begin to improve in the next few days. [NOTE: If you had an x-ray, CT scan, ultrasound, or ECG (electrocardiogram), it will be reviewed by a specialist. You will be notified of any new findings that may affect your care.] Get Prompt Medical Attention if any of the following occur: Current symptoms get worse New symptoms appear Normal Exam [6Yr - Adult] Based on your or your child's exam today, there are no signs of illness or injury. Be assured that the symptoms that worried you are normal. They do not suggest any illness requiring testing or treatment at this time. Home Care: You (or your child) can return to normal activities and diet. If you or your child have new or unusual symptoms not already discussed today, contact the doctor. Follow Up with the doctor for the next routine appointment. For more information: For childrens health information: www.kidshealth.org For adult health information: [email or web address] You have been given the following additional information: Abdominal Pain, Unknown Cause, (Male) Symptoms With Uncertain Cause Normal Exam, (Child) (Adult) (Electronically signed by Yue Ellis A.R.N.P. 12/04/2016 23:00)
== END 2016-12-04 23:15 | disposition home or self-care (01) ==
LOC: ED SRH 20:07
DX: R10.84 Generalized abdominal pain (principal)
CPT/HCPCS: 90004; 90100; 92235; 92530; 92760; 92761; 92762; 92763; 92764; 92765; 92766; 92767; 95059